=== PATIENT | male | born 1945 | race Hispanic/Latino ===

== ENCOUNTER 2020-01-19 10:19 | Emergency (ER) | payer MEDICARE ==
[~2020-01-19] VITALS: Ht 170.2 cm; Wt 77.1 kg
[2020-01-19] MEDS ORDERED: MORPHINE SULFATE 2 MG/ML SYR 1ML IV STA (11:08)
[2020-01-19 11:37] LABS: BASOPHILS % 0.4 % (0.0-1.0); EOSINOPHILS % 0.3 % (0.0-6.0); HEMATOCRIT 38.2 % (38.2-49.6); HEMOGLOBIN 12.9 g/dL (14.0-18.0); LYMPHOCYTES # (AUTO) 0.8 (1.0-3.2); LYMPHOCYTES % 8.8 % (18.0-39.1); MEAN CORPUSCULAR HEMOGLOBIN 30.3 pg (28-32); MEAN CORPUSCULAR HGB CONC 33.8 g/dL (31-35); MEAN CORPUSCULAR VOLUME 89.7 fL (81-99); MONOCYTES # (AUTO) 0.6 (0.2-0.8); MONOCYTES % 6.6 % (4.4-11.3); NEUTROPHILS # (AUTO) 7.8 (2.1-6.9); NEUTROPHILS % 83.4 % (38.7-80.0); PLATELET COUNT 160 x10e3/uL (140-360); RED BLOOD COUNT 4.26 x10e6/uL (4.3-5.7); RED CELL DISTRIBUTION WIDTH 13.7 % (11.7-14.4)
[2020-01-19 11:48] LABS: INR 1.1; PROTHROMBIN TIME 14.9 seconds (11.9-14.5)
[2020-01-19 11:49] LABS: PARTIAL THROMBOPLASTIN TIME 27.1 seconds (23.8-35.5)
[2020-01-19 11:58] LABS: ALBUMIN 3.3 g/dL (3.5-5.0); ALBUMIN/GLOBULIN RATIO 0.9 (0.8-2.0); ANION GAP 10.7 mmol/L (8-16); CALCIUM 8.9 mg/dL (8.4-10.2); CREATININE, SERUM 1.21 mg/dL (0.72-1.25); MAGNESIUM 1.7 MG/DL (1.3-2.1); POTASSIUM 3.7 mmol/L (3.5-5.1)
--- NOTE | 2020-01-19 12:05 | Diagnostic Imaging Report ---
Exam: Head CT without contrast History: Trauma, fall, syncope Comparison studies: None Technique: Axial images were obtained from the skull base to the vertex. Coronal and sagittal images reconstructed from the axial data. Dose modulation, iterative reconstruction, and/or weight based adjustment of the mA/kV was utilized to reduce the radiation dose to as low as reasonably achievable. Radiation dose: Total DLP: 921.4 mGy*cm. Estimated effective dose: DLP x 0.015 Intravenous contrast: None Findings: Scalp: No abnormalities. Bones: No fractures, blastic or lytic lesions. Brain sulci: Moderately prominent. Ventricles: Moderate compensatory dilatation. No hydrocephalus. Extra-axial spaces: No masses, no fluid collection. Parenchyma: No mass, acute hemorrhage or acute cortical vascular insults. A few scattered hypodensities in the supratentorial white matter are nonspecific but most compatible with chronic small vessel ischemic changes. Sellar/suprasellar region: No abnormalities. Craniocervical junction: Patent foramen magnum. No Chiari one malformation. Included paranasal sinuses: Opacified left posterior ethmoid air cell. Remaining included sinuses are clear. Middle ear mastoid cavities: Clear. Incidental findings: Atherosclerotic calcifications in the carotid siphons. IMPRESSION: No acute abnormalities. Chronic findings: 1. Moderate generalized parenchymal volume loss. 2. Mild microvascular ischemic changes. Signed by: Dr. Dionisio Brooks M.D. on 01/19/2020 12:03 PM
[2020-01-19 12:06] LABS: CREATINE KINASE MB 2.8 ng/mL (0-5.0)
--- NOTE | 2020-01-19 12:26 | Diagnostic Imaging Report ---
EXAMINATION: CHEST SINGLE (NOT PORTABLE) INDICATION: Trauma COMPARISON: None FINDINGS: LINES/TUBES:EKG leads overlie the chest. LUNGS:The lungs are moderately inflated. No focal consolidation or pulmonary edema. Mild bibasilar subsegmental atelectasis. PLEURA:No pleural effusion or pneumothorax. MEDIASTINUM:The cardiomediastinal silhouette appears normal in size and shape. BONES/SOFT TISSUES:Left proximal humerus fracture, described in more detail on the dedicated left humerus radiographs of the same day. ABDOMEN:No free air under the diaphragm. IMPRESSION: No radiographic evidence of acute traumatic injury to the thorax. Left proximal humerus fracture, described in more detail on the dedicated left humerus radiographs of the same day. Signed by: Nita Shell MD on 01/19/2020 12:24 PM
--- NOTE | 2020-01-19 12:32 | Diagnostic Imaging Report ---
EXAMINATION: HUMERUS LEFT 2+VIEWS INDICATION: Trauma COMPARISON: None FINDINGS: Acute mildly displaced fracture of the surgical neck of the left proximal humerus with approximately 1cm medial displacement of the distal fracture component. Minimal associated impaction. No additional acute fractures identified. IMPRESSION: Acute mildly displaced fracture of the surgical neck of the left proximal humerus. Signed by: Nita Shell MD on 01/19/2020 12:29 PM
[2020-01-19 13:37] VITALS: BP 115/77
== END 2020-01-19 14:00 | disposition home or self-care (01) ==
LOC: ER 10:19
DX: R55 Syncope and collapse (principal); S42.212A Unspecified displaced fracture of surgical neck of left humerus, initial encounter for closed fracture; W01.0XXA Fall on same level from slipping, tripping and stumbling without subsequent striking against object, initial encounter; Y92.008 Other place in unspecified non-institutional (private) residence as the place of occurrence of the external cause; I10 Essential (primary) hypertension; E11.9 Type 2 diabetes mellitus without complications
CPT/HCPCS: 29240; 36415; 70450; 71045; 73060; 80053; 82550; 82553; 83735; 83880; 84484; 85025; 85610; 85730; 93005; 99284; J2270